=== PATIENT | female | born 1980 | race Caucasian/White ===

== ENCOUNTER 2018-04-14 19:54 | Inpatient (IN) | payer MEDICAID ==
[2018-04-14 20:27] LABS: ADD UMIC YES; UR ASCORBIC ACID NEGATIVE (NEGATIVE); UR BACTERIA FEW /HPF (NONE SEEN); UR BILIRUBIN (Dip) NEGATIVE (NEGATIVE); UR BLOOD (Dip) 3+ mg/dL (NEGATIVE); UR CLARITY CLEAR (CLEAR); UR COLOR COLORLESS (YELLOW); UR GLUCOSE (Dip) NEGATIVE (NEGATIVE); UR KETONES (Dip) NEGATIVE (NEGATIVE); UR LEUKOCYTE ESTERASE (Dip) NEGATIVE Leu/ul (NEGATIVE); UR NITRITE (Dip) NEGATIVE (NEGATIVE); UR RBC 0 /HPF (0-5); UR SPECIFIC GRAVITY (Dip) 1.001 (1.003-1.030); UR TOTAL PROTEIN (Dip) NEGATIVE (NEGATIVE); UR UROBILINOGEN (Dip) NEGATIVE (NEGATIVE); UR WBC 0 /HPF (0-5)
[2018-04-14] MEDS: metFORMIN 500 MG TAB PO (22:18)
[2018-04-14] MEDS: NIFEdipine 10 MG CAP PO (22:21)
[2018-04-14] MEDS: LACTATED RINGER'S 1,000 ML IV (22:22)
[2018-04-14] MEDS: BETAMET NA PHOS/AC(6 MG/ML) 5ML INJ IM (22:28)
[2018-04-14 23:18] LABS: ADD MAN DIFF? NO
[2018-04-14 23:19] LABS: WHITE BLOOD COUNT 5.7 10^3/ul (4.8-10.8)
[2018-04-14 23:19] LABS: BASOPHILS % 0.3 % (0.0-2.0); EOSINOPHILS # 0.1 10^3/ul (0.0-0.5); HEMATOCRIT 34.4 % (37.0-47.0); HEMOGLOBIN 11.6 g/dl (12.0-16.0); LYMPHOCYTES # 1.5 10^3/ul (0.8-2.9); LYMPHOCYTES % 26.9 % (15.0-51.0); MEAN CORPUSCULAR HEMOGLOBIN 28.3 pg (29.0-33.0); MEAN CORPUSCULAR HGB CONC 33.7 g/dl (32.0-37.0); MEAN CORPUSCULAR VOLUME 83.9 fl (82.0-101.0); MEAN PLATELET VOLUME 10.5 fl (7.4-10.4); MONOCYTE # 0.5 10^3/ul (0.3-0.9); MONOCYTES % 9.1 % (0.0-11.0); NEUTROPHIL # 3.5 10^3/ul (1.6-7.5); NEUTROPHILS % 61.5 % (39.0-77.0); PLATELET COUNT 237 10^3/UL (140-415); RED CELL DISTRIBUTION WIDTH 13.7 % (11.5-14.5)
[2018-04-15] MEDS: LACTATED RINGER'S 1,000 ML IV ×3 (04:02→21:51)
[2018-04-15] MEDS ORDERED: DOCUSATE SODIUM 100 MG CAP PO (06:00)
[2018-04-15] MEDS: NIFEdipine 10 MG CAP PO ×4 (06:14→23:53)
[2018-04-15] MEDS: ACCU-CHEK XX ×4 (07:59→21:18)
[2018-04-15] MEDS: DOCUSATE SODIUM 100 MG CAP PO (08:31)
[2018-04-15] MEDS: PRENATAL VITAMIN PO (08:31)
[2018-04-15] MEDS: metFORMIN 500 MG TAB PO (21:22)
[2018-04-15] MEDS: BETAMET NA PHOS/AC(6 MG/ML) 5ML INJ IM (22:14)
[2018-04-16] MEDS: LACTATED RINGER'S 1,000 ML IV ×2 (02:07→13:51)
[2018-04-16] MEDS: NIFEdipine 10 MG CAP PO ×3 (05:59→17:49)
[2018-04-16] MEDS: DOCUSATE SODIUM 100 MG CAP PO (08:44)
[2018-04-16] MEDS: PRENATAL VITAMIN PO (08:44)
[2018-04-16] MEDS: ACCU-CHEK XX ×6 (10:45→20:49)
[2018-04-16] MEDS ORDERED: GLUCAGON 1 MG INJ IM (15:00)
[2018-04-16] MEDS ORDERED: GLUCOSE GEL 15 GRAM TUBE BUCCAL (15:00)
[2018-04-16] MEDS ORDERED: GLUCOSE GEL 15 GRAM TUBE PO ×2 (15:00)
[2018-04-16] MEDS ORDERED: DEXTROSE 50% 50 ML SYRINGE IV ×2 (15:00)
[2018-04-16] MEDS: INSULIN ASPART [NOVOLOG] 3 ML PEN SC ×2 (17:35→21:00)
[2018-04-16] MEDS: metFORMIN 500 MG TAB PO (21:10)
[2018-04-17] MEDS: NIFEdipine 10 MG CAP PO ×5 (00:11→23:55)
[2018-04-17] MEDS: INSULIN ASPART [NOVOLOG] 3 ML PEN SC ×4 (09:00→21:00)
[2018-04-17] MEDS: ACCU-CHEK XX ×8 (09:00→21:09)
[2018-04-17] MEDS: PRENATAL VITAMIN PO (09:32)
[2018-04-17] MEDS: DOCUSATE SODIUM 100 MG CAP PO (09:32)
[2018-04-17] MEDS: metFORMIN 500 MG TAB PO (21:11)
[2018-04-18] MEDS: NIFEdipine 10 MG CAP PO ×3 (06:02→17:48)
[2018-04-18] MEDS: ACCU-CHEK XX ×4 (08:17→20:18)
[2018-04-18] MEDS: PRENATAL VITAMIN PO (08:17)
[2018-04-18] MEDS: DOCUSATE SODIUM 100 MG CAP PO (08:17)
[2018-04-18] MEDS: metFORMIN 500 MG TAB PO (20:37)
[2018-04-19] MEDS: NIFEdipine 10 MG CAP PO ×4 (00:09→17:51)
[2018-04-19] MEDS: ACCU-CHEK XX ×4 (07:30→20:49)
[2018-04-19] MEDS: PRENATAL VITAMIN PO (09:11)
[2018-04-19] MEDS: DOCUSATE SODIUM 100 MG CAP PO (09:11)
[2018-04-19] MEDS: metFORMIN 500 MG TAB PO (20:50)
[2018-04-20] MEDS: NIFEdipine 10 MG CAP PO ×5 (00:11→23:43)
[2018-04-20] MEDS: ACCU-CHEK XX ×4 (08:09→19:43)
[2018-04-20] MEDS: DOCUSATE SODIUM 100 MG CAP PO (08:50)
[2018-04-20] MEDS: PRENATAL VITAMIN PO (08:50)
[2018-04-20] MEDS: metFORMIN 500 MG TAB PO (21:08)
[2018-04-21] MEDS: NIFEdipine 10 MG CAP PO ×4 (05:45→23:48)
[2018-04-21] MEDS: ACCU-CHEK XX ×4 (07:30→20:58)
[2018-04-21] MEDS: PRENATAL VITAMIN PO (08:37)
[2018-04-21] MEDS: DOCUSATE SODIUM 100 MG CAP PO (08:37)
[2018-04-21] MEDS: metFORMIN 500 MG TAB PO (20:58)
[2018-04-22] MEDS: NIFEdipine 10 MG CAP PO ×3 (05:53→18:23)
[2018-04-22] MEDS: ACCU-CHEK XX ×4 (08:00→21:04)
[2018-04-22] MEDS: PRENATAL VITAMIN PO (09:59)
[2018-04-22] MEDS: DOCUSATE SODIUM 100 MG CAP PO (09:59)
[2018-04-22] MEDS: FERROUS SULFATE (EC) 325 MG TAB PO (11:47)
[2018-04-22] MEDS: CALCIUM/VITAMIN D (250/125) TAB PO (11:47)
[2018-04-22] MEDS: metFORMIN 500 MG TAB PO (21:24)
[2018-04-23] MEDS: NIFEdipine 10 MG CAP PO ×5 (00:07→23:31)
[2018-04-23] MEDS: ACCU-CHEK XX ×4 (08:00→21:03)
[2018-04-23] MEDS: FERROUS SULFATE (EC) 325 MG TAB PO (09:28)
[2018-04-23] MEDS: PRENATAL VITAMIN PO (09:28)
[2018-04-23] MEDS: DOCUSATE SODIUM 100 MG CAP PO (09:29)
[2018-04-23] MEDS: CALCIUM/VITAMIN D (250/125) TAB PO (09:29)
[2018-04-23] MEDS: metFORMIN 500 MG TAB PO (21:03)
[2018-04-24] MEDS: ACCU-CHEK XX ×4 (02:30→15:22)
[2018-04-24] MEDS: NIFEdipine 10 MG CAP PO ×3 (06:00→18:10)
[2018-04-24] MEDS: DOCUSATE SODIUM 100 MG CAP PO (08:38)
[2018-04-24] MEDS: CALCIUM/VITAMIN D (250/125) TAB PO (08:38)
[2018-04-24] MEDS: FERROUS SULFATE (EC) 325 MG TAB PO (08:38)
[2018-04-24] MEDS: PRENATAL VITAMIN PO (08:39)
[2018-04-24] MEDS: metFORMIN 500 MG TAB PO (20:58)
[2018-04-25] MEDS: NIFEdipine 10 MG CAP PO ×4 (00:14→17:52)
[2018-04-25] MEDS: FERROUS SULFATE (EC) 325 MG TAB PO (08:54)
[2018-04-25] MEDS: CALCIUM/VITAMIN D (250/125) TAB PO (08:55)
[2018-04-25] MEDS: DOCUSATE SODIUM 100 MG CAP PO (08:55)
[2018-04-25] MEDS: PRENATAL VITAMIN PO (08:55)
[2018-04-25] MEDS: ACCU-CHEK XX ×5 (19:00→20:23)
[2018-04-25] MEDS: metFORMIN 500 MG TAB PO (20:41)
[2018-04-26] MEDS: NIFEdipine 10 MG CAP PO ×4 (00:02→17:34)
[2018-04-26] MEDS: ACETAMINOPHEN 325 MG TAB PO (00:03)
[2018-04-26] MEDS: ACCU-CHEK XX ×4 (08:20→21:04)
[2018-04-26] MEDS: FERROUS SULFATE (EC) 325 MG TAB PO (08:30)
[2018-04-26] MEDS: CALCIUM/VITAMIN D (250/125) TAB PO (08:30)
[2018-04-26] MEDS: DOCUSATE SODIUM 100 MG CAP PO (08:30)
[2018-04-26] MEDS: PRENATAL VITAMIN PO (08:30)
[2018-04-26] MEDS: metFORMIN 500 MG TAB PO (21:05)
[2018-04-27] MEDS: NIFEdipine 10 MG CAP PO ×5 (00:35→23:46)
[2018-04-27] MEDS: ACCU-CHEK XX ×4 (08:00→20:27)
[2018-04-27] MEDS: CALCIUM/VITAMIN D (250/125) TAB PO (09:09)
[2018-04-27] MEDS: FERROUS SULFATE (EC) 325 MG TAB PO (09:09)
[2018-04-27] MEDS: DOCUSATE SODIUM 100 MG CAP PO (09:09)
[2018-04-27] MEDS: PRENATAL VITAMIN PO (09:09)
[2018-04-27] MEDS: metFORMIN 500 MG TAB PO (20:59)
[2018-04-28] MEDS: NIFEdipine 10 MG CAP PO ×4 (05:52→23:48)
[2018-04-28] MEDS: ACCU-CHEK XX ×4 (08:40→20:52)
[2018-04-28] MEDS: FERROUS SULFATE (EC) 325 MG TAB PO (08:44)
[2018-04-28] MEDS: CALCIUM/VITAMIN D (250/125) TAB PO (08:44)
[2018-04-28] MEDS: DOCUSATE SODIUM 100 MG CAP PO (08:44)
[2018-04-28] MEDS: PRENATAL VITAMIN PO (08:44)
[2018-04-28] MEDS: metFORMIN 500 MG TAB PO (21:17)
[2018-04-29] MEDS: NIFEdipine 10 MG CAP PO ×4 (05:35→23:51)
[2018-04-29] MEDS: ACCU-CHEK XX ×4 (08:00→20:05)
[2018-04-29] MEDS: DOCUSATE SODIUM 100 MG CAP PO (09:32)
[2018-04-29] MEDS: CALCIUM/VITAMIN D (250/125) TAB PO (09:32)
[2018-04-29] MEDS: FERROUS SULFATE (EC) 325 MG TAB PO (09:32)
[2018-04-29] MEDS: PRENATAL VITAMIN PO (09:32)
[2018-04-29] MEDS: metFORMIN 500 MG TAB PO (21:06)
[2018-04-30] MEDS: NIFEdipine 10 MG CAP PO ×3 (05:40→18:04)
[2018-04-30] MEDS: ACCU-CHEK XX ×4 (08:50→20:54)
[2018-04-30] MEDS: CALCIUM/VITAMIN D (250/125) TAB PO (08:51)
[2018-04-30] MEDS: FERROUS SULFATE (EC) 325 MG TAB PO (08:51)
[2018-04-30] MEDS: DOCUSATE SODIUM 100 MG CAP PO (08:51)
[2018-04-30] MEDS: PRENATAL VITAMIN PO (08:51)
[2018-04-30] MEDS: metFORMIN 500 MG TAB PO (20:54)
[2018-05-01] MEDS: NIFEdipine 10 MG CAP PO ×4 (00:23→17:50)
[2018-05-01] MEDS: CALCIUM/VITAMIN D (250/125) TAB PO (09:32)
[2018-05-01] MEDS: FERROUS SULFATE (EC) 325 MG TAB PO (09:32)
[2018-05-01] MEDS: DOCUSATE SODIUM 100 MG CAP PO (09:33)
[2018-05-01] MEDS: PRENATAL VITAMIN PO (09:33)
[2018-05-01] MEDS: ACCU-CHEK XX ×4 (19:00→20:24)
[2018-05-01] MEDS: metFORMIN 500 MG TAB PO (20:46)
[2018-05-02] MEDS: NIFEdipine 10 MG CAP PO ×4 (00:12→17:57)
[2018-05-02] MEDS: CALCIUM/VITAMIN D (250/125) TAB PO (09:02)
[2018-05-02] MEDS: DOCUSATE SODIUM 100 MG CAP PO (09:02)
[2018-05-02] MEDS: FERROUS SULFATE (EC) 325 MG TAB PO (09:02)
[2018-05-02] MEDS: ACCU-CHEK XX ×4 (09:02→22:23)
[2018-05-02] MEDS: PRENATAL VITAMIN PO (09:02)
[2018-05-02] MEDS: metFORMIN 500 MG TAB PO (22:27)
[2018-05-03] MEDS: NIFEdipine 10 MG CAP PO ×5 (00:05→23:46)
[2018-05-03] MEDS: ACCU-CHEK XX ×4 (07:40→20:38)
[2018-05-03] MEDS: DOCUSATE SODIUM 100 MG CAP PO (08:41)
[2018-05-03] MEDS: PRENATAL VITAMIN PO (08:41)
[2018-05-03] MEDS: FERROUS SULFATE (EC) 325 MG TAB PO (08:41)
[2018-05-03] MEDS: CALCIUM/VITAMIN D (250/125) TAB PO (08:41)
[2018-05-03] MEDS: metFORMIN 500 MG TAB PO (20:38)
[2018-05-04] MEDS: NIFEdipine 10 MG CAP PO ×4 (05:58→23:54)
[2018-05-04] MEDS: ACCU-CHEK XX ×4 (07:33→20:25)
[2018-05-04] MEDS: PRENATAL VITAMIN PO (08:19)
[2018-05-04] MEDS: CALCIUM/VITAMIN D (250/125) TAB PO (08:19)
[2018-05-04] MEDS: FERROUS SULFATE (EC) 325 MG TAB PO (08:19)
[2018-05-04] MEDS: DOCUSATE SODIUM 100 MG CAP PO (08:19)
[2018-05-04] MEDS: metFORMIN 500 MG TAB PO (20:41)
[2018-05-05] MEDS: NIFEdipine 10 MG CAP PO (06:01)
[2018-05-05] MEDS: ACCU-CHEK XX (08:00)
[2018-05-05] MEDS: CALCIUM/VITAMIN D (250/125) TAB PO (09:38)
[2018-05-05] MEDS: FERROUS SULFATE (EC) 325 MG TAB PO (09:38)
[2018-05-05] MEDS: DOCUSATE SODIUM 100 MG CAP PO (09:39)
[2018-05-05] MEDS: PRENATAL VITAMIN PO (09:39)
== END 2018-05-05 15:30 | disposition home or self-care (01) | DRG 781 ==
LOC: OBT 19:54 → L-D 19:58 → OBT 21:40 → PP1 21:40
DX: O26.873 Cervical shortening, third trimester (principal); O24.419 Gestational diabetes mellitus in pregnancy, unspecified control; O09.513 Supervision of elderly primigravida, third trimester; Z3A.34 34 weeks gestation of pregnancy
CPT/HCPCS: 76815; 76816; 76817; 76818; 81001; 82962; 85025; 87591

== ENCOUNTER 2018-06-08 05:43 | Inpatient (IN) | payer MEDICAID ==
[2018-06-08] MEDS ORDERED: LIDOCAINE 1.5%/EPI MPF (SDV) 30 ML VIAL (07:00)
[2018-06-08] MEDS ORDERED: CEFAZOLIN 2 GM/50 ML (PMX) 50 ML IV (07:00)
[2018-06-08] MEDS ORDERED: OXYTOCIN 30 UNITS/LR 500 ML IV ×3 (07:00→18:00)
[2018-06-08] MEDS ORDERED: CARBOPROST 250 MCG INJ IM ×2 (07:00→18:00)
[2018-06-08] MEDS ORDERED: MISOPROSTOL 200 MCG TAB PR ×2 (07:00→18:00)
[2018-06-08] MEDS ORDERED: EPINEPHrine 1 MG INJ (07:00)
[2018-06-08 07:14] LABS: ADD MAN DIFF? NO
[2018-06-08 07:23] LABS: BASOPHILS % 0.3 % (0.0-2.0); EOSINOPHILS # 0.1 10^3/ul (0.0-0.5); EOSINOPHILS % 1.1 % (0.0-7.0); HEMATOCRIT 37.4 % (37.0-47.0); HEMOGLOBIN 12.5 g/dl (12.0-16.0); LYMPHOCYTES # 1.8 10^3/ul (0.8-2.9); LYMPHOCYTES % 25.2 % (15.0-51.0); MEAN CORPUSCULAR HEMOGLOBIN 28.2 pg (29.0-33.0); MEAN CORPUSCULAR HGB CONC 33.4 g/dl (32.0-37.0); MEAN CORPUSCULAR VOLUME 84.2 fl (82.0-101.0); MEAN PLATELET VOLUME 11.1 fl (7.4-10.4); MONOCYTE # 0.6 10^3/ul (0.3-0.9); MONOCYTES % 7.7 % (0.0-11.0); NEUTROPHIL # 4.7 10^3/ul (1.6-7.5); NEUTROPHILS % 63.9 % (39.0-77.0); PLATELET COUNT 226 10^3/UL (140-415); RED BLOOD COUNT 4.44 10^6/ul (4.20-5.40); RED CELL DISTRIBUTION WIDTH 14.6 % (11.5-14.5)
[2018-06-08 07:23] LABS: WHITE BLOOD COUNT 7.3 10^3/ul (4.8-10.8)
[2018-06-08 07:36] LABS: INR 0.93; PROTIME 12.5 Sec (11.9-14.9)
[2018-06-08 07:37] LABS: PARTIAL THROMBOPLASTIN TIME 25.2 Sec (23.0-35.0)
[2018-06-08] MEDS ORDERED: KETOROLAC 30 MG INJ IV (08:00)
[2018-06-08] MEDS ORDERED: DIPHENHYDRAMINE 50 MG INJ IV ×2 (08:00)
[2018-06-08] MEDS ORDERED: ONDANSETRON 4 MG INJ IV ×2 (08:00)
[2018-06-08] MEDS ORDERED: ZOLPIDEM 5 MG TAB PO (08:00)
[2018-06-08] MEDS ORDERED: NALOXONE (0.4 MG/ML) INJ IV (08:00)
[2018-06-08] MEDS ORDERED: FENTAnyl 50 MCG/ML VIAL IV ×2 (08:00)
[2018-06-08] MEDS ORDERED: HYDROmorphONE 0.5 MG/0.5 ML SYG IV ×2 (08:00)
[2018-06-08] MEDS ORDERED: HYDROmorphONE 1 MG/5 ML IV SYRINGE IV ×3 (08:00)
[2018-06-08] MEDS ORDERED: OXYTOCIN 10 UNIT INJ (09:08)
[2018-06-08] MEDS ORDERED: morphine SULFATE/PF (10 MG/10 ML) INJ (09:08)
[2018-06-08] MEDS ORDERED: BUPIVACAINE 0.75%/DEXT (SPINAL) 2 ML INJ (09:09)
[2018-06-08 09:13] LABS: HEPATITIS B SURFACE ANTIGEN NEGATIVE (NEGATIVE)
[2018-06-08] MEDS: LACTATED RINGER'S 1,000 ML IV ×3 (11:17→12:06)
[2018-06-08] MEDS: METOCLOPRAMIDE 10 MG INJ IV (11:39)
[2018-06-08] MEDS: FAMOTIDINE 20 MG INJ IV (11:39)
[2018-06-08] MEDS: ONDANSETRON 4 MG INJ IV (11:39)
[2018-06-08 15:24] LABS: RAPID PLASMA REAGIN NONREACTIVE (NR)
[2018-06-08] MEDS: METHYLERGONOVINE 0.2 MG INJ IM (15:49)
[2018-06-08] MEDS: OXYTOCIN 30 UNITS/LR 500 ML IV ×4 (17:10→21:44)
[2018-06-08] MEDS ORDERED: IBUPROFEN 600 MG TAB PO (18:00)
[2018-06-08] MEDS ORDERED: OXYCODONE/ACETAMINOPHEN (5/325) TAB PO (18:00)
[2018-06-08] MEDS ORDERED: METHYLERGONOVINE 0.2 MG INJ IM (18:00)
[2018-06-08] MEDS ORDERED: LANOLIN 7 GM TUBE TOP (18:00)
[2018-06-08] MEDS: CEFAZOLIN 1 GM/50 ML (PMX) 50 ML IVPB (21:41)
[2018-06-09] MEDS: OXYTOCIN 30 UNITS/LR 500 ML IV ×4 (01:31→13:31)
[2018-06-09] MEDS: KETOROLAC 30 MG INJ IV ×2 (02:09→08:13)
[2018-06-09 08:45] LABS: ADD MAN DIFF? NO
[2018-06-09 08:50] LABS: BASOPHILS % 0.4 % (0.0-2.0); EOSINOPHILS # 0.1 10^3/ul (0.0-0.5); EOSINOPHILS % 0.5 % (0.0-7.0); HEMATOCRIT 33.1 % (37.0-47.0); HEMOGLOBIN 11.1 g/dl (12.0-16.0); LYMPHOCYTES # 1.2 10^3/ul (0.8-2.9); LYMPHOCYTES % 11.6 % (15.0-51.0); MEAN CORPUSCULAR HEMOGLOBIN 28.2 pg (29.0-33.0); MEAN CORPUSCULAR HGB CONC 33.5 g/dl (32.0-37.0); MEAN PLATELET VOLUME 11.1 fl (7.4-10.4); MONOCYTE # 0.7 10^3/ul (0.3-0.9); MONOCYTES % 6.8 % (0.0-11.0); NEUTROPHIL # 8.5 10^3/ul (1.6-7.5); NEUTROPHILS % 79.9 % (39.0-77.0); PLATELET COUNT 197 10^3/UL (140-415); RED BLOOD COUNT 3.94 10^6/ul (4.20-5.40); RED CELL DISTRIBUTION WIDTH 14.3 % (11.5-14.5)
[2018-06-09 08:50] LABS: WHITE BLOOD COUNT 10.6 10^3/ul (4.8-10.8)
[2018-06-09] MEDS: PRENATAL VITAMIN PO (10:00)
[2018-06-09] MEDS: SENNA/DOCUSATE NA (8.6MG/50MG) TAB PO ×2 (10:00→22:27)
[2018-06-09] MEDS: OXYCODONE/ACETAMINOPHEN (5/325) TAB PO (16:14)
[2018-06-09] MEDS: IBUPROFEN 600 MG TAB PO (18:19)
[2018-06-09] MEDS: HYDROCODONE/APAP (5/325) TAB PO (22:28)
[2018-06-10] MEDS: IBUPROFEN 600 MG TAB PO ×4 (01:27→17:24)
[2018-06-10] MEDS: HYDROCODONE/APAP (5/325) TAB PO (08:29)
[2018-06-10] MEDS: PRENATAL VITAMIN PO (10:19)
[2018-06-10] MEDS: SENNA/DOCUSATE NA (8.6MG/50MG) TAB PO ×2 (10:20→21:24)
[2018-06-10] MEDS: NA PHOSPHATE/BIPHOS 133 ML ENEMA PR (17:24)
[2018-06-11] MEDS: IBUPROFEN 600 MG TAB PO ×4 (00:16→17:13)
[2018-06-11] MEDS: HYDROCODONE/APAP (5/325) TAB PO ×3 (03:57→17:13)
[2018-06-11] MEDS: SENNA/DOCUSATE NA (8.6MG/50MG) TAB PO (10:30)
[2018-06-11] MEDS: PRENATAL VITAMIN PO (10:30)
[2018-06-11] MEDS: DIPHTH/TET/ACEL PERTUSS (ADULT) 0.5 ML VIAL IM* (10:32)
== END 2018-06-11 17:45 | disposition home or self-care (01) | DRG 785 ==
LOC: L-D 05:43 → PP1 17:29
PROVIDERS: Obstetrics & Gynecology
PROC: 10D00Z1 Extraction of Products of Conception, Low, Open Approach (ICD-10-PCS; principal; 2018-06-08 08:00)
PROC: 0UB70ZZ Excision of Bilateral Fallopian Tubes, Open Approach (ICD-10-PCS; 2018-06-08 08:00)
DX: O24.420 Gestational diabetes mellitus in childbirth, diet controlled (principal); O34.211 Maternal care for low transverse scar from previous cesarean delivery; Z3A.39 39 weeks gestation of pregnancy; Z37.0 Single live birth; Z30.2 Encounter for sterilization
CPT/HCPCS: 62319; 85025; 85610; 85730; 86592; 86850; 86900; 86901; 87340; 88302; 90715; 99464